=== PATIENT | male | born 1980 | race Caucasian/White ===

== ENCOUNTER 2018-06-02 17:10 | Emergency (ER) | payer SELFPAY ==
--- NOTE | 2018-06-02 18:18 | EDPHY ---
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 to climb the 1st flat iron. He had about a bottle of water but was out all day, ran out of water and it was very hot today, almost to 100 degrees F. He felt very dehydrated and kept trying to drink water, but had abdominal cramping was unable keep anything down. He presents feeling very dehydrated, thirsty, having nausea. Symptoms severe. Worse with trying to drink water. REVIEW OF SYSTEMS: Eye: No visual symptoms ENT: no sore throat Cardiac: No syncope Pulmonary: Not short of breath Abdomen: HPI Musculoskeletal: No extremity pain Skin: no rash Neuro: no headache Constitutional: no fever : Darker urine but able to urinate A comprehensive 10 point review of systems is otherwise negative aside from elements mentioned in the history of present illness. 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 Eyes: No scleral icterus. ENT, Mouth: Dry mucous membranes Respiratory: Normal respiratory effort, breath sounds equal, lungs are clear to auscultation. Cardiovascular: Regular rate and rhythm. Gastrointestinal: Abdomen is soft and non tender. Neurological: Alert, face symmetric, normal motor and sensory in extremities. Skin: Warm and dry, no rashes. Musculoskeletal: No peripheral edema. Psychiatric: Not agitated. Emergency Department course/MDM: Labs show sodium 149, creatinine 1.8, hematocrit 57. All likely from hemoconcentration and dehydration. 3 L normal saline IV, Zofran 4 mg IV. Will recheck i-STAT after IV fluids. 2135: feels better, no vomiting now, creat 1.3 now; labs reviewed with him and he feels comfortable being discharged with I think is reasonable. CO2 slightly low at 19 but potassium and creatinine have normalized. Smoking Status: Never smoked Constitutional: Initial Vital Signs Temperature (C) 36.9 C 06/02/18 17:21 Heart Rate 110 H 06/02/18 17:21 Respiratory Rate 18 06/02/18 17:21 Blood Pressure 127/104 H 06/02/18 17:21 O2 Sat (%) 96 06/02/18 17:21 O2 Delivery Mode Room Air Allergies/Adverse Reactions: No Known Allergies Allergy (Unverified 06/02/18 17:21) Home Medications: Medication Instructions Recorded NK [No Known Home Meds] 06/02/18 Medical Decision Making Differential Diagnosis: Differential diagnosis considered for nausea and vomiting including but not limited to dehydration, gastroenteritis, gastritis, appendicitis, and medication side effect. - Data Points Laboratory Results: Laboratory Results 06/02/18 18:20 06/02/18 21:10 06/02/18 06/02/18 06/02/18 21:10 18:29 18:20 WBC RBC Hgb POC Hgb 19.4 gm/dL H gm/dL (13.7-17.5) Hct POC Hct 57 % H % (40-51) MCV MCH MCHC RDW Plt Count MPV Neut % (Auto) Lymph % (Auto) Catron % (Auto) Eos % (Auto) Baso % (Auto) Nucleat RBC Rel Count Absolute Neuts (auto) Absolute Lymphs (auto) Absolute Monos (auto) Absolute Eos (auto) Absolute Basos (auto) Absolute Nucleated RBC Immature Gran % Immature Gran # POC Sodium 149 mEq/L H mEq/L (135-145) Sodium 141 mEq/L mEq/L REJ (135-145) POC Potassium 5.5 mEq/L H mEq/L (3.3-5.0) Potassium 4.2 mEq/L mEq/L REJ (3.3-5.0) POC Chloride 115 mEq/L H mEq/L (97-110) Chloride 113 mEq/L H mEq/L REJ (97-110) Carbon Dioxide 19 mEq/l L mEq/l REJ (22-31) Anion Gap 9 mEq/L mEq/L REJ (8-16) POC BUN 37 mg/dL H mg/dL (7-23) BUN 24 mg/dL H mg/dL REJ (7-23) Creatinine 1.3 mg/dL mg/dL REJ (0.7-1.3) POC Creatinine 1.8 mg/dL H mg/dL (0.7-1.3) Estimated GFR > 60 REJ Glucose 109 mg/dL H mg/dL REJ (70-100) POC Glucose 120 mg/dL H mg/dL (70-100) Calcium 9.1 mg/dL mg/dL REJ (8.5-10.4) 06/02/18 18:20 WBC 10.98 10^3/uL H 10^3/uL (3.80-9.50) RBC 6.66 10^6/uL H 10^6/uL (4.40-6.38) Hgb 18.7 g/dL H g/dL (13.7-17.5) POC Hgb Hct 54.3 % H % (40.0-51.0) POC Hct MCV 81.5 fL fL (81.5-99.8) MCH 28.1 pg pg (27.9-34.1) MCHC 34.4 g/dL g/dL (32.4-36.7) RDW 12.5 % % (11.5-15.2) Plt Count 218 10^3/uL 10^3/uL (150-400) MPV 12.0 fL H fL (8.7-11.7) Neut % (Auto) 85.1 % H % (39.3-74.2) Lymph % (Auto) 8.3 % L % (15.0-45.0) Catron % (Auto) 6.2 % % (4.5-13.0) Eos % (Auto) 0.0 % L % (0.6-7.6) Baso % (Auto) 0.1 % L % (0.3-1.7) Nucleat RBC Rel Count 0.0 % % (0.0-0.2) Absolute Neuts (auto) 9.35 10^3/uL H 10^3/uL (1.70-6.50) Absolute Lymphs (auto) 0.91 10^3/uL L 10^3/uL (1.00-3.00) Absolute Monos (auto) 0.68 10^3/uL 10^3/uL (0.30-0.80) Absolute Eos (auto) 0.00 10^3/uL L 10^3/uL (0.03-0.40) Absolute Basos (auto) 0.01 10^3/uL L 10^3/uL (0.02-0.10) Absolute Nucleated RBC 0.00 10^3/uL 10^3/uL (0-0.01) Immature Gran % 0.3 % % (0.0-1.1) Immature Gran # 0.03 10^3/uL 10^3/uL (0.00-0.10) POC Sodium Sodium POC Potassium Potassium POC Chloride Chloride Carbon Dioxide Anion Gap POC BUN BUN Creatinine POC Creatinine Estimated GFR Glucose POC Glucose Calcium Medications Given: Discontinued Medications Sodium Chloride (Ns) 1,000 mls @ 0 mls/hr IV EDNOW ONE; Wide Open PRN Reason: Protocol Stop: 06/02/18 18:25 Last Admin: 06/02/18 18:30 Dose: 1,000 mls Sodium Chloride (Ns) 1,000 mls @ 0 mls/hr IV EDNOW ONE; Wide Open PRN Reason: Protocol Stop: 06/02/18 18:40 Last Admin: 06/02/18 19:19 Dose: 1,000 mls Sodium Chloride (Ns) 1,000 mls @ 0 mls/hr IV EDNOW ONE; Wide Open PRN Reason: Protocol Stop: 06/02/18 18:40 Last Admin: 06/02/18 20:21 Dose: 1,000 mls Ondansetron HCl (Zofran) 4 mg IVP EDNOW ONE Stop: 06/02/18 18:25 Last Admin: 06/02/18 18:31 Dose: 4 mg Ondansetron HCl (Zofran Odt 4 Mg Prepack#2) 1 btl TAKEHOME EDNOW ONE Stop: 06/02/18 21:37 Last Admin: 06/02/18 21:45 Dose: 1 btl Point of Care Test Results: Chemistry 06/02/18 18:29 POC Sodium 149 mEq/L H mEq/L (135-145) POC Potassium 5.5 mEq/L H mEq/L (3.3-5.0) POC Chloride 115 mEq/L H mEq/L (97-110) POC BUN 37 mg/dL H mg/dL (7-23) POC Creatinine 1.8 mg/dL H mg/dL (0.7-1.3) POC Glucose 120 mg/dL H mg/dL (70-100) ISTAT H&H 06/02/18 18:29 POC Hgb 19.4 gm/dL H gm/dL (13.7-17.5) POC Hct 57 % H % (40-51) Departure - Departure Disposition: Home, Routine, Self-Care Clinical Impression: Dehydration Condition: Good Instructions: Dehydration (ED) Referrals: KIMBERLY MCCLAIN [Other] - As per Instructions
[2018-06-02] MEDS ORDERED: NS 1,000 ML IV ONE ×3 (18:24→18:39)
[2018-06-02] MEDS ORDERED: ONDANSETRON 4 MG/2 ML VIAL IVP ONE (18:24)
[2018-06-02 18:43] LABS: PLATELET COUNT 218 10^3/uL (150-400)
[2018-06-02] MEDS ORDERED: ONDANSETRON 4MG PREPACK#2 BTL TAKEHOME ONE (21:36)
[2018-06-02 21:48] VITALS: BP 138/75
== END 2018-06-02 21:46 | disposition home or self-care (01) ==
DX: E86.0 Dehydration (principal); E86.9 Volume depletion, unspecified
CPT/HCPCS: 82435-PO; 82565-PO; 82947-PO; 84132-PO; 84295-PO; 84520-PO; 85014-PO; 96374; J2405